=== PATIENT | female | born 1930 | race Hispanic/Latino ===

== ENCOUNTER 2016-10-09 13:04 | Observation (INO) | payer MEDICARE, MEDICAID ==
[2016-10-09 13:08] VITALS: BMI 21.7
--- NOTE | 2016-10-09 13:21 | ED PDOC ---
Arrival/HPI - General Chief Complaint: Shortness Of Breath Time Seen by Provider: 10/09/16 13:12 Historian: Patient - History of Present Illness Narrative History of Present Illness (Text): 10/09/16 13:20 85 year old female whose past medical history includes hypertension, diabetes, and CAD presents to the emergency department with palpitations and shortness of breath since yesterday. Patient's son states she has been arguing with her daughter. Denies fever, cough, vomiting, or other complaints. Over the past few weeks, the patient has been tried on PPIs with partial relief. She is also on xanax. PMD: Dr. Martin Time/Duration: 24 hours Symptom Onset: Gradual Symptom Course: Unchanged Modifying Factors (Text): None Associated Symptoms (Text): None Past Medical History - Provider Review Nursing Documentation Reviewed: Yes - Infectious Disease Hx of Infectious Diseases: None - Tetanus Immunization Tetanus Immunization: Unknown - Reproductive Menopause: Yes - Past Medical History Past Medical History: No Previous - Cardiac Hx Cardiac Disorders: Yes Hx Hypertension: Yes - Pulmonary Hx Respiratory Disorders: No - Neurological Hx Paralysis: No - HEENT Hx HEENT Disorder: Yes (eyeglasses) - Renal Hx Renal Disorder: No - Endocrine/Metabolic Hx Diabetes Mellitus Type 2: Yes - Hematological/Oncological Hx Blood Transfusions: No Hx Blood Transfusion Reaction: No - Integumentary Hx Dermatological Disorder: No - Musculoskeletal/Rheumatological Hx Falls: Yes - Gastrointestinal Hx Gastrointestinal Disorders: Yes (DIVERTICULITIS,CONSTIPATION) - Genitourinary/Gynecological Hx Genitourinary Disorders: No - Psychiatric Hx Anxiety: Yes Hx Substance Use: No - Past Surgical History Past Surgical History: Non-Contributing - Surgical History Hx Cardiac Catheterization: Yes (2006) Hx Hysterectomy: Yes Hx Orthopedic Surgery: Yes - Anesthesia Hx Anesthesia Reactions: No Hx Malignant Hyperthermia: No - Suicidal Assessment Feels Threatened In Home Enviroment: No Family/Social History - Physician Review Nursing Documentation Reviewed: Yes Family/Social History: Unknown Family HX Smoking Status: Former Smoker Hx Alcohol Use: No Hx Substance Use: No Hx Substance Use Treatment: No Allergies/Home Meds Allergies/Adverse Reactions: Allergies vancomycin Allergy (Severe, Verified 09/29/15 16:43) ANAPHYLAXIS levofloxacin Allergy (Intermediate, Verified 09/29/15 16:43) RASH Home Medications: Home Meds Medication Instructions Recorded Confirmed Temazepam [Restoril] 30 mg PO HS 07/23/15 10/09/16 Alprazolam [Xanax] 0.5 mg PO TID 10/09/16 10/09/16 Atorvastatin [Lipitor] 20 mg PO DAILY 10/09/16 10/09/16 SITagliptin [Januvia] 100 mg PO DAILY 10/09/16 10/09/16 metFORMIN [glucOPHAGE] 500 mg PO BID 10/09/16 10/09/16 Review of Systems - Physician Review All systems were reviewed & negative as marked: Yes - Review of Systems Constitutional: absent: Fevers ENT: absent: Rhinorrhea Respiratory: SOB. absent: Cough Cardiovascular: Chest Pain, Palpitations Gastrointestinal: Abdominal Pain. absent: Nausea, Vomiting Physical Exam Vital Signs Reviewed: Yes Vital Signs Temp Pulse Resp BP Pulse Ox 10/09/16 16:35 81 18 144/82 98 10/09/16 13:22 98.1 F 91 H 16 158/96 H 97 Temperature: Afebrile Blood Pressure: Normal Pulse: Regular Respiratory Rate: Normal Appearance: Positive for: Well-Appearing, Non-Toxic, Comfortable, Other ( Slightly tremulous) Pain Distress: None Mental Status: Positive for: Alert and Oriented X 3 - Systems Exam Head: Present: Atraumatic, Normocephalic Pupils: Present: PERRL Conjunctiva: Present: Normal Mouth: Present: Moist Mucous Membranes Neck: Present: Normal Range of Motion Respiratory/Chest: Present: Clear to Auscultation, Good Air Exchange. No: Respiratory Distress, Accessory Muscle Use Cardiovascular: Present: Regular Rate and Rhythm, Normal S1, S2. No: Murmurs Abdomen: Present: Normal Bowel Sounds. No: Tenderness, Distention, Peritoneal Signs Back: Present: Normal Inspection Upper Extremity: Present: Normal Inspection. No: Cyanosis, Edema Lower Extremity: Present: Normal Inspection. No: Edema Neurological: Present: GCS=15, CN II-XII Intact, Speech Normal Skin: Present: Warm, Dry, Normal Color. No: Rashes Psychiatric: Present: Alert, Oriented x 3, Normal Insight, Normal Concentration Medical Decision Making ED Course and Treatment: Impression: 85 year old female whose past medical history includes hypertension , diabetes, and cardiac catheterization presents to the emergency department with palpitations and shortness of breath since yesterday. Differential Diagnosis include but are not limited to: Anxiety vs PE vs ACS vs GERD Plan: -- EKG, Chest X-ray -- Xanax -- Labs -- Reassess and disposition Prior Visits: Notes and results from previous visits were reviewed. Patient last seen in ED on 09/25/15 for fever and admitted for diverticulitis Progress Notes: Chest Xray: Creator : Bruna Blanca MD 10/09/2016 14:43 IMPRESSION: No focal airspace opacity. Please note that chest radiographs have low sensitivity for small pulmonary nodules. If indicated, chest CT should be obtained. PROCEDURE: CT Chest with contrast (Pulmonary Angiogram) Creator : Bruna Blanca MD 10/09/2016 17:06 IMPRESSION: No filling defects identified in the main, lobar and proximal segmental pulmonary arteries. Multiple thyroid nodules some of which appear calcified. Dedicated ultrasound can be obtained if indicated. Other findings as above. 10/09/16 17:24 Patient with noted history with unremarkable EKG and CE. D-dimer was elevated and CTA done shows no PE -will need additional evaluation and treatment on tele so will be observed further. Discussed with Dr. Fernández, covering Dr. Martin. - Lab Interpretations Lab Results: 10/09/16 13:44 10/09/16 13:44 Lab Results 10/09/16 13:44: Sodium 138, Potassium 4.3, Chloride 103, Carbon Dioxide 26, Anion Gap 13, BUN 16, Creatinine 0.9, Est GFR ( Amer) > 60, Est GFR (Non- Af Amer) 59, Random Glucose 121 H, Calcium 9.2, Total Bilirubin 0.6, AST 20, ALT 27, Alkaline Phosphatase 61, Lactate Dehydrogenase 341, Total Creatine Kinase 61, Troponin I 0.01, NT-Pro-B Natriuret Pep 379, Total Protein 7.5, Albumin 4.1, Globulin 3.5, Albumin/Globulin Ratio 1.2, Lipase 71 10/09/16 13:44: PT 12.3 H, INR 1.14 H, APTT 27.6, D-Dimer, Quantitative 0.74 H 10/09/16 13:44: WBC 3.3 L, RBC 4.00, Hgb 12.0, Hct 35.6 L, MCV 89.0, MCH 30.0, MCHC 33.7, RDW 14.4, Plt Count 173, MPV 9.7, Gran % 52.9, Lymph % (Auto) 30.6, [place] % (Auto) 15.6 H, Eos % (Auto) 0.6 L, Baso % (Auto) 0.3, Gran # 1.73, Lymph # 1.0 L, [place] # 0.5, Eos # 0.0, Baso # 0.01 - RAD Interpretation Radiology Orders: 10/09/16 13:20 CHEST PORTABLE [RAD] Stat 10/09/16 14:19 ANGIO CHEST PE PROTOCOL [CT] Stat - EKG Interpretation EKG Interpretation (Text): EKG shows NSR at 85 BPM with normal intervals, left axis deviation, no ST/T changes Interpreted by ED Physician: Yes Type: 12 lead EKG - Medication Orders Current Medication Orders: Discontinued Medications Alprazolam (Xanax) 0.5 mg PO STAT STA PRN Reason: Protocol Stop: 10/09/16 13:20 Last Admin: 10/09/16 13:26 Dose: 0.5 mg Erythromycin (Erythromycin) 1 applic OS Q6H STA Stop: 10/09/16 17:09 Iohexol (Omnipaque 350 100 Ml) Confirm Administered Dose 350 mg .ROUTE .STK-MED ONE Stop: 10/09/16 15:56 - Scribe Statement The provider has reviewed the documentation as recorded by the Radha James Provider Scribe Attestation: All medical record entries made by the Scribe were at my direction and personally dictated by me. I have reviewed the chart and agree that the record accurately reflects my personal performance of the history, physical exam, medical decision making, and the department course for this patient. I have also personally directed, reviewed, and agree with the discharge instructions and disposition. Disposition/Present on Arrival - Present on Arrival Any Indicators Present on Arrival: No History of DVT/PE: No History of Uncontrolled Diabetes: No Urinary Catheter: No History of Decub. Ulcer: No History Surgical Site Infection Following: None - Disposition Have Diagnosis and Disposition been Completed?: Yes Diagnosis: Chest pain, Palpitations Disposition: HOSPITALIZED Disposition Time: 17:15 Patient Plan: Observation, Telemetry Condition: FAIR Discharge Instructions (ExitCare): Chest Pain (ED) Referrals: Javier Martin DO [Primary Care Provider] - Follow up with primary
[2016-10-09 13:45] LABS: ADD MANUAL DIFF? NO
[2016-10-09 13:53] LABS: BASO # 0.01 K/mm3 (0.0-2.0); BASO % 0.3 % (0.0-3.0); EOS % 0.6 % (1.5-5.0); GRAN # 1.73 (1.4-6.5); GRAN % 52.9 % (50.0-68.0); HEMATOCRIT 35.6 % (36.0-48.0); LYMPH % 30.6 % (22.0-35.0); MEAN CORPUSCULAR HGB CONC 33.7 g/dl (31.0-37.0); MEAN PLATELET VOLUME 9.7 fl (7.0-11.0); MONO # 0.5 (0.1-0.6); MONO % 15.6 % (1.0-6.0); PLATELET COUNT 173 10^3/uL (120.0-450.0); RED CELL DISTRIBUTION WIDTH 14.4 % (11.5-14.5); WHITE BLOOD COUNT 3.3 10^3/ul (4.5-11.0)
[2016-10-09 14:04] LABS: ALB/GLOB RATIO 1.2 (1.1-1.8); ALKALINE PHOSPHATASE 61 U/L (38-133); ALT/SGPT 27 U/L (7-56); AST/SGOT 20 U/L (15-39); BILIRUBIN,TOTAL 0.6 mg/dL (0.2-1.3); BLOOD UREA NITROGEN 16 mg/dL (7-21); CALCIUM 9.2 mg/dL (8.4-10.5); CARBON DIOXIDE 26 mmol/L (21-33); CHLORIDE 103 mmol/L (98-107); GFR AFRICAN-AMERICAN > 60; GLUCOSE,RANDOM 121 mg/dL (70-110); LIPASE 71 U/L (23-300); POTASSIUM 4.3 mmol/L (3.6-5.0); SODIUM 138 mmol/L (132-148); TOTAL PROTEIN 7.5 g/dL (5.8-8.3)
[2016-10-09 14:09] LABS: INR 1.14 (0.93-1.08); PARTIAL THROMBOPLASTIN TIME 27.6 Seconds (23.7-30.8)
[2016-10-09 14:15] LABS: D DIMER 0.74 mg/L FEU (0-0.50); TROPONIN I 0.01 ng/mL
--- NOTE | 2016-10-09 14:40 | RAD ---
HISTORY: sob; palpitations COMPARISON: 01/19/2016 FINDINGS: LUNGS: No focal airspace opacity. PLEURA: Biapical pleural parenchymal thickening noted. CARDIOVASCULAR: Stable cardiomediastinal silhouette. OSSEOUS STRUCTURES: The osseous structures demonstrate degenerative changes. Osteopenia. VISUALIZED UPPER ABDOMEN: Upper abdomen is suboptimally evaluated. OTHER FINDINGS: None. IMPRESSION: No focal airspace opacity. Please note that chest radiographs have low sensitivity for small pulmonary nodules. If indicated, chest CT should be obtained.
[2016-10-09] MEDS ORDERED: Iohexol 350 MG/100 ML VIAL ONE (15:55)
--- NOTE | 2016-10-09 17:04 | CT ---
PROCEDURE: CT Chest with contrast (Pulmonary Angiogram) HISTORY: sob; r/o PE COMPARISON: None available. TECHNIQUE: Axial computed tomography images were obtained of the chest in the pulmonary arterial phase of enhancement. Coronal and sagittal reformatted images were created and reviewed. Intravenous contrast dose: 85 mL Radiation dose: Total exam DLP = 174.44 mGy-cm. This CT exam was performed using one or more of the following dose reduction techniques: Automated exposure control, adjustment of the mA and/or kV according to patient size, and/or use of iterative reconstruction technique. FINDINGS: PULMONARY ARTERIES: No filling defects identified in the main, lobar and proximal segmental pulmonary arteries. Enlarged main pulmonary artery. This can be seen in setting of pulmonary arterial hypertension. AORTA: No acute findings. No thoracic aortic aneurysm. Scattered atherosclerotic calcification throughout the abdominal aorta and its main branches. LUNGS: 2 millimeter pulmonary nodule in the superior right middle lobe (image 46 series 4). 3 millimeter pulmonary nodule in the inferior right upper lobe (image 54, series 4). 3 millimeter pulmonary nodule in the left upper lobe (image 53, series 4). Small tracheal diverticulum on the right. PLEURAL SPACES: Biapical pleural parenchymal thickening noted. HEART: Mild cardiomegaly. No significant pericardial effusion. LYMPH NODES: No lymphadenopathy. BONES, CHEST WALL: Generalized osteopenia. Anterior wedge deformities involving the vertebral bodies of upper to midthoracic spine. Degenerative changes involving the osseous structures. OTHER FINDINGS: Multiple thyroid nodules some of which appear calcified. Dystrophic calcifications in the left breast. Punctate calcifications in the right breast. Small hiatal hernia. Upper abdomen: Calcification in the spleen likely from old granulomatous disease. Visualized portions of the pancreas, liver appear unremarkable. The stomach is collapsed limiting evaluation. Malrotated left kidney. The limited visualization of the colon. IMPRESSION: No filling defects identified in the main, lobar and proximal segmental pulmonary arteries. Multiple thyroid nodules some of which appear calcified. Dedicated ultrasound can be obtained if indicated. Other findings as above.
[2016-10-09] MEDS ORDERED: Erythromycin 0.5% Ophth Oint 1 APPLIC/3.5 G OS STA (17:08)
[2016-10-09] MEDS: Insulin Reg-LOW-Coverage SC SCH (22:01)
--- NOTE | 2016-10-09 22:14 | CP.PCM.PN ---
Subjective - Date & Time of Evaluation Date of Evaluation: 10/09/16 Time of Evaluation: 22:07 - Subjective Subjective: S:Patient was seen at bed side because she requested a sleeping pill. Has no other symptoms now. Denies chest pain, sob, nausea , dizziness. Medical record was reviewed. O: Last Vital Signs 3 Temp 98.1 F 10/09/16 13:22 Pulse 87 10/09/16 18:18 Resp 18 10/09/16 18:18 BP 122/74 10/09/16 18:18 Pulse Ox 96 10/09/16 18:18 Awake, alert, not in distress. LUNGS:Normal breathing pattern. NEURO:Speech normal. A:Adjustment insomnia. P:Benadryl 25 mg PO x 1. Objective - Vital Signs/Intake and Output Vital Signs (last 24 hours): Temp Pulse Resp BP Pulse Ox 98.1 F 87 18 122/74 96 10/09/16 13:22 10/09/16 18:18 10/09/16 18:18 10/09/16 18:18 10/09/16 18:18 - Medications Medications: Current Medications Atorvastatin Calcium (Lipitor) 20 mg PO DIN [facility] Insulin Human Regular (Humulin R Low) 0 units SC ACHS [facility] PRN Reason: Protocol Last Admin: 10/09/16 22:01 Dose: Not Given Isosorbide Mononitrate (Imdur) 60 mg PO DAILY [facility] Metoclopramide HCl (Reglan) 5 mg PO QID [facility] Last Admin: 10/09/16 22:01 Dose: 5 mg Metoprolol Tartrate (Lopressor) 50 mg PO BID [facility] Pantoprazole Sodium (Protonix Ec Tab) 40 mg PO 0730,1630 [facility] - Labs Labs: PT 12.3 Seconds (9.9-11.8) H 10/09/16 13:44 INR 1.14 (0.93-1.08) H 10/09/16 13:44 APTT 27.6 Seconds (23.7-30.8) 10/09/16 13:44
[2016-10-09] MEDS ORDERED: Pneumococcal 23-Valent Vaccine IM ONE (23:15)
[2016-10-10 06:12] VITALS: O2SAT 98
[2016-10-10 06:40] LABS: URINE BILIRUBIN NEGATIVE (NEGATIVE); URINE BLOOD TRACE-LYSED (NEGATIVE); URINE GLUCOSE (UA) NEGATIVE (NEGATIVE); URINE KETONE NEGATIVE (NEGATIVE); URINE LEUKOCYTE ESTERASE NEGATIVE Leu/uL (NEGATIVE); URINE PROTEIN NEGATIVE mg/dL (<30 mg/dL); URINE UROBILINOGEN 0.2 E.U./dL (<1 E.U./dL)
[2016-10-10 06:41] LABS: URINE APPEARANCE CLEAR (CLEAR); URINE COLOR YELLOW (YELLOW)
[2016-10-10 06:52] LABS: URINE BACTERIA SMALL (NEG); URINE RBC 0 - 2 /hpf (0-2); URINE WBC 0 - 2 /hpf (0-6)
[2016-10-10] MEDS ORDERED: Pantoprazole 40 mg EC Tab PO SCH (07:30)
[2016-10-10 07:46] LABS: HEMATOCRIT 35.7 % (36.0-48.0); MEAN CORPUSCULAR HEMOGLOBIN 29.7 pg (25.0-35.0); MEAN CORPUSCULAR HGB CONC 33.3 g/dl (31.0-37.0); MEAN PLATELET VOLUME 10.3 fl (7.0-11.0); RED CELL DISTRIBUTION WIDTH 14.4 % (11.5-14.5); WHITE BLOOD COUNT 3.1 10^3/ul (4.5-11.0)
[2016-10-10 08:01] LABS: ALB/GLOB RATIO 1.2 (1.1-1.8); ALKALINE PHOSPHATASE 60 U/L (38-133); ALT/SGPT 34 U/L (7-56); AST/SGOT 20 U/L (15-39); BILIRUBIN,TOTAL 0.6 mg/dL (0.2-1.3); BLOOD UREA NITROGEN 13 mg/dL (7-21); CALCIUM 8.9 mg/dL (8.4-10.5); CARBON DIOXIDE 26 mmol/L (21-33); CHLORIDE 105 mmol/L (95-110); GFR AFRICAN-AMERICAN > 60; GLUCOSE,RANDOM 114 mg/dL (70-110); POTASSIUM 3.8 mmol/L (3.6-5.0); SODIUM 141 mmol/L (132-148); TOTAL PROTEIN 6.9 g/dL (5.8-8.3)
[2016-10-10] MEDS: Insulin Reg-LOW-Coverage SC SCH ×2 (08:04→11:30)
[2016-10-10 08:44] LABS: TROPONIN I 0.01 ng/mL
--- NOTE | 2016-10-10 10:29 | CARD ---
APPROVED REPORT EKG Measurement Heart [id number] MD [id number] <Conclusion> Normal sinus rhythm Leftward axis No change
[2016-10-10] MEDS: Pneumococcal 23-Valent Vaccine IM ONE ×2 (10:37→10:48)
[2016-10-10 11:43] VITALS: BP 119/80; PULSE 67; RESP 20; TEMP 98.1
--- NOTE | 2016-10-10 13:46 | HP ---
I know the patient very well for many years, coming to the office. She came in with chest pain, shortness of breath, anxiety. An 85-year-old female, not feeling well. She is very upset about her daughter, who is going through lots of issues and she has been depressed ever since her daughter has been doing this. She is very anxious and nervous. She gets chest pain when this happens. We have done this many times on the outpatient and the troponins have been negative. PAST MEDICAL HISTORY: Anxiety, hypertension, depression. She has had falls. She has diverticulitis. She has constipation. PAST SURGICAL HISTORY: She had a cardiac catheterization, hysterectomy, orthopedic surgery in the past. FAMILY HISTORY: There is hypertension in the family. She is a former smoker, no alcohol, no drugs. ALLERGIES: VANCOMYCIN AND LEVOFLOXACIN. She takes Restoril, Xanax, Lipitor, Januvia, and Glucophage. No acute vision loss. No acute hearing loss, but old. No headache. No sore throat. No neck pain. There is chest pain, more anxiety. No shortness of breath at this time, maybe when she came in a little bit with her hyperventilating. No nausea, vomiting, constipation. She does get some abdominal pain from time to time. She has not been eating much because she is very depressed over her daughter. She walks. She has got no pains in the extremities. Skin for the most part is intact. PHYSICAL EXAMINATION: VITAL SIGNS: She has a 98.1 temp, 81 pulse, 18 respiratory rate, 144/82 blood pressure, 98% O2 sat on room air. HEENT: Head is atraumatic, normocephalic. Extraocular muscles are intact. Pupils are equal, reactive to light and accommodation. Throat is moist. NECK: Supple. HEART: Regular rate. Normal S1, S2. LUNGS: Decreased breath sounds, but clear to auscultation. GENERAL: She is a well-appearing, looking at me, talking with me, alert and oriented x 3. ABDOMEN: Soft, nontender, positive bowel sounds, no guarding, no rebound, no CVA tenderness. EXTREMITIES: Have no edema. NEUROLOGIC: GCS is 15. Cranial nerves II-XII grossly intact. Normal speech. SKIN: Warm, dry and intact. PSYCHIATRIC: Alert and oriented x 3. She is anxious and very upset about her daughter being ill and dysfunctional. She was put back on medications. She had multiple labs and tests. She had a CAT scan of the chest. She had no filling defects. She has thyroid nodules at this time. We can follow that up on the outpatient. She has a 141 sodium, potassium 3.8, BUN 13, creatinine 0.9, GFR is greater than 60, sugar is 114, calcium is 8.9, total bili is 0.6, AST is 20, ALT is 34, alk phos is 60. All troponins x 4 are 0.01. Total protein 6.9. INR is 1.14. D-dimer was high at 0.74, but the CAT scan of the chest was normal. White count 3.1, 11.9 hemoglobin, 35.7 hematocrit with 177 platelets. She is here for chest pain, rule out myocardial infarction. She is mostly anxiety from the situation with her daughter. We have been dealing with this for about a year now. She has had multiple outpatient troponins and EKGs and they have all been normal, from anxiety. She will go home hopefully later today. The patient is here for chest pain and anxiety. Javier Martin DO cc: [id number] TT: 10/10/2016 13:46:00 en MTDD
--- NOTE | 2016-10-10 18:30 | DS ---
HISTORY OF PRESENT ILLNESS: She is resting comfortably in bed. She ate 75% of her breakfast, which is very good for her. She is still anxious and nervous and would prefer to be in the hospital than home with family issues on Mother's Day , but she did well with the test and she can be discharged today. PHYSICAL EXAMINATION: VITAL SIGNS: Good at 98.4 temp, 83 pulse, 138/77 blood pressure, 19 respiratory rate, 98% O2 sat. HEENT: Head is atraumatic, normocephalic. HEART: Regular rate. LUNGS: Clear to auscultation. ABDOMEN: Soft, scaphoid, nontender, positive bowel sounds, no guarding, no rebound. EXTREMITIES: No edema. CHEST: No more chest pain or shortness of breath. DISCHARGE MEDICATIONS: She will go home on the same medications she came in on. LABORATORY DATA: She has a 3.1 white count, 11.9 hemoglobin, 177 platelets. Chemistries are very good except for 114 sugar. All the troponins are negative. PLAN: I am going to stop her Januvia since her blood sugars have been kind of light since she has been here. She will just go home on her metformin and I will follow in the outpatient. I will let her know that. Everything else will be the same on the medicines. I will see her in the office this week _ chest pain, which was negative. Javier Martin DO cc: [id number] TT: 10/10/2016 18:29:59 ln MTDD
== END 2016-10-10 12:52 | disposition home or self-care (01) ==
LOC: ED 13:04 → ERH 17:18 → 2RSO 18:20
PROVIDERS: ADMIT Family Medicine; ATTEND Family Medicine
DX: R07.9 Chest pain, unspecified (principal); F41.9 Anxiety disorder, unspecified; I10 Essential (primary) hypertension; F51.02 Adjustment insomnia; Z87.891 Personal history of nicotine dependence
CPT/HCPCS: 36415; 71010; 71275; 80053; 81001; 82550; 82948; 83615; 83690; 83880; 84484; 85025; 85027; 85378; 85610; 85730; 93005; 99285; G0378; Q9967

== ENCOUNTER 2017-01-25 02:46 | Emergency (ER) | payer MEDICARE, MEDICAID ==
[2017-01-25 02:49] VITALS: BMI 19.5
[2017-01-25 02:55] VITALS: TEMP 98.3
[2017-01-25] MEDS ORDERED: TDAP Vaccine 0.5 mL Syr IM ONE (03:06)
--- NOTE | 2017-01-25 03:08 | ED PDOC ---
Arrival/HPI - General Chief Complaint: Trauma Time Seen by Provider: 01/25/17 02:49 Historian: Patient, Parent (Son and Daughter) - History of Present Illness Narrative History of Present Illness (Text): 01/25/17 03:04 86 year old female presents to the emergency department by EMS for an unwitnessed mechanical fall prior to arrival. Patient's family stated she went to the bathroom and on her way back to bed she slipped and landed on her right side. They reported that she hit her head, but denies any loss of consciousness , fever, chills, chest pain, shortness of breath, nausea, vomiting, diarrhea, urinary symptoms, back pain, neck pain, headache, dizziness, or any other complaints. Time/Duration: Prior to Arrival Symptom Course: Unchanged Activities at Onset: Light Context: Home, Slipped Past Medical History - Provider Review Nursing Documentation Reviewed: Yes - Cardiac Hx Cardiac Disorders: Yes Hx Angina: Yes Hx Hypertension: Yes - Endocrine/Metabolic Hx Endocrine Disorders: Yes Hx Diabetes Mellitus Type 2: Yes - Gastrointestinal Hx Gastrointestinal Disorders: Yes Hx Diverticulitis: Yes Hx Gastritis: Yes - Psychiatric Hx Substance Use: No - Surgical History Hx Hysterectomy: Yes Other/Comment: Colon resection Family/Social History - Physician Review Nursing Documentation Reviewed: Yes Family/Social History: No Known Family HX Smoking Status: Former Smoker Hx Alcohol Use: No Hx Substance Use: No Allergies/Home Meds Allergies/Adverse Reactions: Allergies vancomycin Allergy (Verified 01/25/17 02:48) RASH Home Medications: Home Meds Medication Instructions Recorded Confirmed Atorvastatin [Lipitor] 20 mg PO DAILY 01/25/17 01/25/17 Celecoxib [Celebrex] 200 mg PO DAILY 01/25/17 01/25/17 Dexlansoprazole [Dexilant] 60 mg PO DAILY 01/25/17 01/25/17 Esomeprazole Magnesium [Nexium] 40 mg PO BID 01/25/17 01/25/17 Isosorbide Mononitrate [Isosorbide 60 mg PO DAILY 01/25/17 01/25/17 Mononitrate ER] Metformin HCl [Glucophage] 500 mg PO BID 01/25/17 01/25/17 Metoprolol Tartrate [Lopressor] 50 mg PO BID 01/25/17 01/25/17 Pantoprazole Sodium [Protonix] 40 mg PO BID 01/25/17 01/25/17 SITagliptin [Januvia] 100 mg PO DAILY 01/25/17 01/25/17 Review of Systems - Physician Review All systems were reviewed & negative as marked: Yes - Review of Systems Constitutional: absent: Fevers, Other (Chills) Respiratory: absent: SOB Cardiovascular: absent: Chest Pain Gastrointestinal: absent: Diarrhea, Nausea, Vomiting Genitourinary Female: absent: Dysuria, Frequency, Hematuria Musculoskeletal: absent: Back Pain, Neck Pain Neurological: Headache. absent: Dizziness, Other (Loss of Consciousness) Physical Exam Vital Signs Reviewed: Yes Vital Signs Temp Pulse Resp BP Pulse Ox 01/25/17 02:54 98.3 F 89 16 130/68 97 Temperature: Afebrile Blood Pressure: Normal Pulse: Regular Respiratory Rate: Normal Appearance: Positive for: Well-Appearing, Non-Toxic, Comfortable Pain Distress: None Mental Status: Positive for: Alert and Oriented X 3 - Systems Exam Head: Present: Normocephalic, Abrasion (Abrasion to the nasal bridge forehead area) Pupils: Present: PERRL Extroacular Muscles: Present: EOMI Conjunctiva: Present: Normal Mouth: Present: Moist Mucous Membranes Neck: Present: Normal Range of Motion Respiratory/Chest: Present: Clear to Auscultation, Good Air Exchange. No: Respiratory Distress, Accessory Muscle Use Cardiovascular: Present: Regular Rate and Rhythm, Normal S1, S2. No: Murmurs Abdomen: Present: Normal Bowel Sounds. No: Tenderness, Distention, Peritoneal Signs Back: Present: Normal Inspection. No: Midline Tenderness, Paraspinal Tenderness Upper Extremity: Present: Normal Inspection, Other (Right arm area superficial ecchymosis to the right elbow.). No: Cyanosis, Edema Lower Extremity: Present: Normal Inspection, Other (Abrasion and contusion to the right anterior knee. Pain on flexion and extension.). No: Edema Neurological: Present: GCS=15, CN II-XII Intact, Speech Normal Skin: Present: Warm, Dry, Normal Color. No: Rashes Psychiatric: Present: Alert, Oriented x 3, Normal Insight, Normal Concentration Medical Decision Making ED Course and Treatment: 01/25/17 03:05 Impression: 86 year old female present for an unwitnessed mechanical fall that occurred prior to arrival. Plan: -- CT Head -- CT Maxillofacial -- Booster vaccine Inj -- Tylenol 325mg tab -- X-Ray Right Elbow 3 View -- X-Ray Right Knee with Patella 3 View -- Reassess and disposition Progress Notes: EXAM: CT Head Without Intravenous Contrast Dictated and Authenticated by: Alvarez Avendaño MD 01/25/2017 4:02 AM FINDINGS: Brain: Hypodense lacunar infarcts are visualized within the left cerebellar lobe , which appear to be subacute. There are small periventricular foci of hypodensity, likely representing small vessel ischemic disease in a patient this age. The acuity of the white matter disease is indeterminate. The white-mitchell differentiation is preserved demonstrating no acute territorial type infarct. There is mild prominence of the ventricles and sulci, compatible with atrophy. No acute intracranial hemorrhage is seen. Midline shift: There is no midline shift. Ventricles: There is a cavum vellum interpositum variant. Bones/joints: The calvarium demonstrates no evidence for a depressed fracture. Nonspecific sclerotic lesions are visualized within the right parietal skull, the largest measuring 1.5 x 0.6 cm. Soft tissues: There is mild soft tissue swelling/hematoma of the left frontal scalp. Vasculature: There is atherosclerotic calcification of the cavernous internal carotid arteries. Sinuses: Unremarkable as visualized. No acute sinusitis. Mastoid air cells: No mastoid effusion. IMPRESSION: 1. No acute intracranial hemorrhage or acute territorial type infarct. 2. Hypodense lacunar infarcts are visualized within the left cerebellar lobe, which appear to be subacute. 3. There are small periventricular foci of hypodensity, likely representing small vessel ischemic disease in a patient this age. 4. Mild atrophy. EXAM: CT Maxillofacial Without Intravenous Contrast Dictated and Authenticated by: Alvarez Avendaño MD 01/25/2017 4:07 AM FINDINGS: Bones/joints: No acute facial bone fracture. Soft tissues: There is soft tissue swelling/hematoma of the left frontal scalp. Orbits: Probable bilateral intraocular lens implants are visualized. Sinuses: There is a tiny mucous retention cyst or polyp within the left maxillary sinus. Minimal mucosal thickening is identified of the left frontal sinus. A small mucous retention cyst or polyp is visualized within the left anterior ethmoid air cell. Dental: Dental streaking artifact is visualized. IMPRESSION: 1. No acute facial bone fracture. 2. There is soft tissue swelling/hematoma of the left frontal scalp. 3. Additional CT findings described above. 01/25/17 04:24 X-Ray Right Elbow 3 View IMPRESSION: Read by me, shows no acute processes. X-Ray Right Knee with Patella 3 View IMPRESSION: Read by me, shows no acute processes. - RAD Interpretation Radiology Orders: 01/25/17 03:03 HEAD W/O CONTRAST [CT] Stat MAXILLOFACIAL W/O CONTRAST [CT] Stat 01/25/17 03:04 ELBOW RIGHT 3 VIEWS ROUTINE [RAD] Stat 01/25/17 03:05 KNEE W PATELLA RIGHT 3 VIEW [RAD] Stat - Medication Orders Current Medication Orders: Discontinued Medications Acetaminophen (Tylenol 325mg Tab) 650 mg PO STAT STA Stop: 01/25/17 03:06 Last Admin: 01/25/17 03:09 Dose: 650 mg Tetanus/Reduced Diphtheria/Acell Pertussis (Boostrix Vaccine Inj) 0.5 ml IM .ONCE ONE Stop: 01/25/17 03:07 Last Admin: 01/25/17 03:48 Dose: 0.5 ml - Scribe Statement The provider has reviewed the documentation as recorded by the Scribe Arlen Randhawa All medical record entries made by the Scribe were at my direction and personally dictated by me. I have reviewed the chart and agree that the record accurately reflects my personal performance of the history, physical exam, medical decision making, and the department course for this patient. I have also personally directed, reviewed, and agree with the discharge instructions and disposition. Disposition/Present on Arrival - Present on Arrival Any Indicators Present on Arrival: No History of DVT/PE: No History of Uncontrolled Diabetes: No Urinary Catheter: No History of Decub. Ulcer: No History Surgical Site Infection Following: None - Disposition Have Diagnosis and Disposition been Completed?: Yes Diagnosis: Head injury, Contusion, Knee sprain, Elbow contusion, Abrasion Disposition: HOME/ ROUTINE Disposition Time: 04:29 Patient Plan: Discharge Condition: GOOD Discharge Instructions (ExitCare): Head Injury (ED), Knee Sprain (ED), Abrasion (ED), Contusion in Adults (ED) Additional Instructions: Rest/no strenuous physical activity/avoid weight bearing on affected knee/Aleve or advil as directed/keep abrasion clean and dry/may apply bacitracin daily/ follow up with your doctor/orthopedist this week Referrals: Greta Soriano MD [Staff Provider] - Follow up with primary Forms: [employer] ([employer])
--- NOTE | 2017-01-25 04:03 | CT ---
EXAM: CT Head Without Intravenous Contrast EXAM DATE/TIME: 01/25/2017 3:03 AM CLINICAL HISTORY: The patient age is 86 years old and is female; Injury or trauma; Fall; Initial encounter; Concussion / head injury Facility exam id and description: Ct heads head w/o contrast TECHNIQUE: Axial computed tomography images of the head/brain without intravenous contrast. All CT scans at this facility use one or more dose reduction techniques, viz.: automated exposure control; ma/kV adjustment per patient size (including targeted exams where dose is matched to indication; i.e. head); or iterative reconstruction technique. COMPARISON: No relevant prior studies available. FINDINGS: Brain: Hypodense lacunar infarcts are visualized within the left cerebellar lobe, which appear to be subacute. There are small periventricular foci of hypodensity, likely representing small vessel ischemic disease in a patient this age. The acuity of the white matter disease is indeterminate. The white-mitchell differentiation is preserved demonstrating no acute territorial type infarct. There is mild prominence of the ventricles and sulci, compatible with atrophy. No acute intracranial hemorrhage is seen. Midline shift: There is no midline shift. Ventricles: There is a cavum vellum interpositum variant. Bones/joints: The calvarium demonstrates no evidence for a depressed fracture. Nonspecific sclerotic lesions are visualized within the right parietal skull, the largest measuring 1.5 x 0.6 cm. Soft tissues: There is mild soft tissue swelling/hematoma of the left frontal scalp. Vasculature: There is atherosclerotic calcification of the cavernous internal carotid arteries. Sinuses: Unremarkable as visualized. No acute sinusitis. Mastoid air cells: No mastoid effusion. IMPRESSION: 1. No acute intracranial hemorrhage or acute territorial type infarct. 2. Hypodense lacunar infarcts are visualized within the left cerebellar lobe, which appear to be subacute. 3. There are small periventricular foci of hypodensity, likely representing small vessel ischemic disease in a patient this age. 4. Mild atrophy.
--- NOTE | 2017-01-25 04:07 | CT ---
EXAM: CT Maxillofacial Without Intravenous Contrast EXAM DATE/TIME: 01/25/2017 3:03 AM CLINICAL HISTORY: The patient age is 86 years old and is female; Injury or trauma; Fall; Initial encounter; Concussion /head injury; Loss of consciousness not known Facility exam id and description: Ct faces maxillofacial w/o contrast TECHNIQUE: Axial computed tomography images of the face without intravenous contrast. All CT scans at this facility use one or more dose reduction techniques, viz.: automated exposure control; ma/kV adjustment per patient size (including targeted exams where dose is matched to indication; i.e. head); or iterative reconstruction technique. Coronal and sagittal reformatted images were created and reviewed. COMPARISON: No relevant prior studies available. FINDINGS: Bones/joints: No acute facial bone fracture. Soft tissues: There is soft tissue swelling/hematoma of the left frontal scalp. Orbits: Probable bilateral intraocular lens implants are visualized. Sinuses: There is a tiny mucous retention cyst or polyp within the left maxillary sinus. Minimal mucosal thickening is identified of the left frontal sinus. A small mucous retention cyst or polyp is visualized within the left anterior ethmoid air cell. Dental: Dental streaking artifact is visualized. IMPRESSION: 1. No acute facial bone fracture. 2. There is soft tissue swelling/hematoma of the left frontal scalp. 3. Additional CT findings described above.
[2017-01-25 04:47] VITALS: BP 126/83; PULSE 68; RESP 18; O2SAT 99
--- NOTE | 2017-01-25 09:00 | RAD ---
PROCEDURE: Right Knee Radiographs. HISTORY: Injury COMPARISON: None. FINDINGS: BONES: There is diffuse bone demineralization. There is no acute displaced fracture or bone destruction. JOINTS: There is mild tricompartmental degenerative osteoarthrosis with reduced joint spaces and marginal spurring, worse in the medial compartment. JOINT EFFUSION: None. OTHER FINDINGS: None. IMPRESSION: No acute displaced fracture or dislocation. 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
--- NOTE | 2017-01-25 09:03 | RAD ---
PROCEDURE: Radiographs of the right elbow. HISTORY: injury COMPARISON: No prior. FINDINGS: BONES: There is no acute displaced fracture or bone destruction. Bone alignment is normal. There is mild periarticular bone demineralization. JOINTS: Normal. No osteoarthritis. SOFT TISSUES: Normal. JOINT EFFUSION: None. OTHER FINDINGS: None. IMPRESSION: No acute fracture or dislocation.
== END 2017-01-25 04:45 | disposition home or self-care (01) ==
LOC: ED 02:46 → MERGE 02:46 → ED 04:45
DX: S09.90XA Unspecified injury of head, initial encounter (principal); S50.01XA Contusion of right elbow, initial encounter; S80.01XA Contusion of right knee, initial encounter; S83.91XA Sprain of unspecified site of right knee, initial encounter; W01.0XXA Fall on same level from slipping, tripping and stumbling without subsequent striking against object, initial encounter; Y93.89 Activity, other specified; Y92.008 Other place in unspecified non-institutional (private) residence as the place of occurrence of the external cause; Z23 Encounter for immunization